=== PATIENT | male | born 1955 | race Caucasian/White ===

== ENCOUNTER 2020-11-25 12:35 | Inpatient (IN) ==
[2020-11-25 13:16] LABS: Hematocrit 33.7 % (37.5-50.1); Hemoglobin 11.1 g/dL (12.9-16.9); Mean Corpuscular HGB Conc 32.9 g/dL (31.6-35.5); Mean Corpuscular Hemoglobin 30.5 pg (28.0-33.3); Mean Corpuscular Volume 92.6 fL (83.0-100.0); Mean Platelet Volume 10.1 fL (9.4-12.4); Platelet Count 247 K/mcL (140-400); Red Blood Count 3.64 M/mcL (4.19-5.50); Red Cell Distribution Width 12.7 % (11.5-14.5); White Blood Count 17.4 K/mcL (4.3-11.1)
[2020-11-25 13:22] LABS: INR 1.2; Prothrombin Time 13.6 Seconds (9.4-12.1)
[2020-11-25 13:33] LABS: Alanine Aminotransferase 40 Units/L (7-52); Albumin 3.6 g/dL (3.5-5.7); Albumin/Globulin Ratio 1.3 (1.1-2.2); Alkaline Phosphatase 88 Units/L (34-104); Aspartate Amino Transferase 49 Units/L (13-39); BUN/Creatinine Ratio 25 (6-26); Bilirubin,Total 0.3 mg/dL (0.3-1.0); Blood Urea Nitrogen 37 mg/dL (8-23); Calcium 8.6 mg/dL (8.6-10.3); Carbon Dioxide 26 mEq/L (23-29); Chloride 105 mEq/L (98-107); Globulin 2.8 g/dL (2.4-3.5); Glucose 353 mg/dL (70-105); Osmolality,Calculated 307 (280-300); Potassium 5.4 mEq/L (3.5-5.1); Sodium 137 mEq/L (136-145); Total Protein 6.4 g/dL (6.4-8.9); eGFR For African Americans 58 (> 60); eGFR For Non-African Americans 48 (> 60)
[2020-11-25 13:34] LABS: Lymphocytes # 0.4 K/mcL (0.6-4.6); Monocytes # 0.7 K/mcL (0.0-1.3); Neutrophils # 16.4 K/mcL (1.6-8.9); Platelet Estimate Normal (Normal)
[2020-11-25 13:35] LABS: Toxic Granulation Present (Not Present)
[2020-11-25] MEDS ORDERED: Isovue-370 500 ML BOTTLE IVP ONE (14:04)
[2020-11-25] MEDS ORDERED: MetroNIDAZOLE 500 MG/100 ML 500 MG/100 ML BAG IVPB ONE (14:56)
[2020-11-25] MEDS ORDERED: Naloxone 0.4 MG/ML INJ IVP PRN (16:47)
[2020-11-25] MEDS ORDERED: D5% in Water 1,000 ML IVC PRN (17:07)
[2020-11-25] MEDS ORDERED: *HR* Dextrose 50 % in Water (Vial) 50 ML VIAL IVP PRN (17:07)
[2020-11-25] MEDS ORDERED: Dextrose Gel 15 GM/37.5 ML TUBE PO PRN ×2 (17:07)
[2020-11-25] MEDS: 0.9 % Sodium Chloride 1,000 ML IVC SCH (18:07)
[2020-11-25 18:13] LABS: Ferritin 195 ng/mL (20-250); Iron < 10 mcg/dL (65-175); Transferrin 212 mg/dL (203-362)
[2020-11-25] MEDS: Insulin LISPRO 300 UNITS/3 ML VIAL SUBQ SCH (18:49)
[2020-11-25 20:02] LABS: Influenza A PCR Negative (Negative); Influenza B PCR Negative (Negative); Resp. Syncytial Virus PCR Negative (Negative)
[2020-11-25 20:17] LABS: SARS-CoV-2 by PCR (In House) Negative (Negative)
[2020-11-25] MEDS: Pregabalin 75 MG CAPSULE PO SCH (20:51)
[2020-11-25] MEDS: OXcarbazepine 150 MG TABLET PO SCH (20:51)
[2020-11-25] MEDS: QUEtiapine Fumarate 100 MG TABLET PO SCH (20:51)
[2020-11-25] MEDS: TACROLIMUS TP SCH (20:52)
[2020-11-25] MEDS: Clobetasol Propionate 0.05% 15 GM Cream Tube TP SCH (20:52)
[2020-11-25] MEDS: Melatonin 3 MG TABLET PO SCH (20:52)
[2020-11-25] MEDS: Latanoprost 2.5 ML BOTTLE BOTH EYES SCH (20:53)
[2020-11-25] MEDS: Baclofen 10 MG TABLET PO SCH (20:58)
[2020-11-26] MEDS: Insulin LISPRO 300 UNITS/3 ML VIAL SUBQ SCH ×5 (00:08→23:59)
[2020-11-26] MEDS: MetroNIDAZOLE 500 MG/100 ML 500 MG/100 ML BAG IVPB SCH ×3 (00:13→17:04)
[2020-11-26] MEDS: 0.9 % Sodium Chloride 1,000 ML IVC SCH ×3 (05:41→14:37)
[2020-11-26 05:51] LABS: Hematocrit 32.8 % (37.5-50.1); Hemoglobin 10.5 g/dL (12.9-16.9); Mean Corpuscular Hemoglobin 30.6 pg (28.0-33.3); Mean Corpuscular Volume 95.6 fL (83.0-100.0); Mean Platelet Volume 10.6 fL (9.4-12.4); Platelet Count 236 K/mcL (140-400); Red Blood Count 3.43 M/mcL (4.19-5.50); Red Cell Distribution Width 12.9 % (11.5-14.5)
[2020-11-26 06:04] LABS: Albumin 3.2 g/dL (3.5-5.7); Albumin/Globulin Ratio 1.2 (1.1-2.2); BUN/Creatinine Ratio 29 (6-26); Bilirubin,Direct 0.1 mg/dL (0.0-0.2); Bilirubin,Indirect 0.2 mg/dL (0.0-1.0); Bilirubin,Total 0.3 mg/dL (0.3-1.0); Blood Urea Nitrogen 33 mg/dL (8-23); Calcium 8.4 mg/dL (8.6-10.3); Carbon Dioxide 26 mEq/L (23-29); Chloride 105 mEq/L (98-107); Globulin 2.7 g/dL (2.4-3.5); Glucose 148 mg/dL (70-105); Magnesium 2.2 mg/dL (1.6-2.6); Osmolality,Calculated 296 (280-300); Potassium 4.8 mEq/L (3.5-5.1); Sodium 138 mEq/L (136-145); Total Protein 5.9 g/dL (6.4-8.9); eGFR For African Americans > 60 (> 60); eGFR For Non-African Americans > 60 (> 60)
[2020-11-26 06:17] LABS: Eosinophils # 0.3 K/mcL (0.0-0.6); Lymphocytes # 0.6 K/mcL (0.6-4.6); Monocytes # 0.6 K/mcL (0.0-1.3); Platelet Estimate Normal (Normal); Toxic Granulation Present (Not Present)
[2020-11-26] MEDS: Cholecalciferol (D-3) 1,000 UNIT (25MCG) TABLET PO SCH (07:47)
[2020-11-26] MEDS: Pregabalin 75 MG CAPSULE PO SCH ×2 (07:47→21:00)
[2020-11-26] MEDS: QUEtiapine Fumarate 100 MG TABLET PO SCH ×2 (07:48→21:02)
[2020-11-26] MEDS: OXcarbazepine 150 MG TABLET PO SCH ×2 (07:48→21:02)
[2020-11-26] MEDS: Baclofen 10 MG TABLET PO SCH ×3 (07:48→21:01)
[2020-11-26] MEDS: Psyllium 1 PACKET POWD.PACK PO SCH (07:49)
[2020-11-26] MEDS: TACROLIMUS TP SCH ×2 (07:49→21:05)
[2020-11-26] MEDS: Clobetasol Propionate 0.05% 15 GM Cream Tube TP SCH ×2 (07:56→21:04)
[2020-11-26] MEDS ORDERED: Pantoprazole 40 MG VIAL IVP SCH (09:00)
[2020-11-26] MEDS ORDERED: *HR* Propofol 200 MG/20 ML VIAL IVP ONE (09:42)
[2020-11-26] MEDS ORDERED: Lidocaine -MPF 2% 5 ML VIAL ONE (09:42)
[2020-11-26] MEDS ORDERED: *HR* FentaNYL (PF) 100 MCG/2 ML VIAL ONE (11:21)
[2020-11-26] MEDS: Pantoprazole 40 MG VIAL IVP SCH (17:04)
[2020-11-26] MEDS: Melatonin 3 MG TABLET PO SCH (21:01)
[2020-11-26] MEDS: Latanoprost 2.5 ML BOTTLE BOTH EYES SCH (21:04)
[2020-11-27] MEDS: 0.9 % Sodium Chloride 1,000 ML IVC SCH ×2 (00:10→13:35)
[2020-11-27] MEDS: MetroNIDAZOLE 500 MG/100 ML 500 MG/100 ML BAG IVPB SCH ×3 (00:10→16:31)
[2020-11-27] MEDS: Pantoprazole 40 MG VIAL IVP SCH ×2 (05:31→16:31)
[2020-11-27] MEDS: Insulin LISPRO 300 UNITS/3 ML VIAL SUBQ SCH ×4 (05:32→22:04)
[2020-11-27 06:51] LABS: Hematocrit 31.6 % (37.5-50.1); Hemoglobin 10.2 g/dL (12.9-16.9); Mean Corpuscular HGB Conc 32.3 g/dL (31.6-35.5); Mean Corpuscular Hemoglobin 30.4 pg (28.0-33.3); Mean Corpuscular Volume 94.3 fL (83.0-100.0); Mean Platelet Volume 10.1 fL (9.4-12.4); Platelet Count 216 K/mcL (140-400); Red Blood Count 3.35 M/mcL (4.19-5.50); Red Cell Distribution Width 12.7 % (11.5-14.5)
[2020-11-27 07:08] LABS: BUN/Creatinine Ratio 22 (6-26); Blood Urea Nitrogen 18 mg/dL (8-23); Calcium 8.1 mg/dL (8.6-10.3); Carbon Dioxide 24 mEq/L (23-29); Chloride 104 mEq/L (98-107); Glucose 119 mg/dL (70-105); Osmolality,Calculated 281 (280-300); Potassium 4.6 mEq/L (3.5-5.1); Sodium 134 mEq/L (136-145); eGFR For African Americans > 60 (> 60); eGFR For Non-African Americans > 60 (> 60)
[2020-11-27 07:26] LABS: Eosinophils # 0.3 K/mcL (0.0-0.6); Lymphocytes # 1.7 K/mcL (0.6-4.6); Monocytes # 0.3 K/mcL (0.0-1.3); Neutrophils # 11.8 K/mcL (1.6-8.9)
[2020-11-27 07:27] LABS: Platelet Estimate Normal (Normal)
[2020-11-27] MEDS: Pregabalin 75 MG CAPSULE PO SCH ×2 (08:15→20:15)
[2020-11-27] MEDS: QUEtiapine Fumarate 100 MG TABLET PO SCH ×2 (08:15→20:16)
[2020-11-27] MEDS: Clobetasol Propionate 0.05% 15 GM Cream Tube TP SCH ×2 (08:16→20:17)
[2020-11-27] MEDS: Baclofen 10 MG TABLET PO SCH ×3 (08:16→20:16)
[2020-11-27] MEDS: Cholecalciferol (D-3) 1,000 UNIT (25MCG) TABLET PO SCH (08:16)
[2020-11-27] MEDS: OXcarbazepine 150 MG TABLET PO SCH ×2 (08:16→20:16)
[2020-11-27] MEDS: Psyllium 1 PACKET POWD.PACK PO SCH (08:17)
[2020-11-27] MEDS: TACROLIMUS TP SCH ×2 (08:18→22:05)
[2020-11-27] MEDS ORDERED: Isovue-370 500 ML BOTTLE IVP ONE (08:28)
[2020-11-27] MEDS: Ketorolac 30 MG/ML VIAL IVP PRN (13:34)
[2020-11-27] MEDS: Melatonin 3 MG TABLET PO SCH (20:16)
[2020-11-27] MEDS: Latanoprost 2.5 ML BOTTLE BOTH EYES SCH (20:18)
[2020-11-28] MEDS: 0.9 % Sodium Chloride 1,000 ML IVC SCH ×2 (00:20→11:26)
[2020-11-28] MEDS: MetroNIDAZOLE 500 MG/100 ML 500 MG/100 ML BAG IVPB SCH ×2 (00:24→08:41)
[2020-11-28 03:28] LABS: Hematocrit 28.4 % (37.5-50.1); Hemoglobin 9.1 g/dL (12.9-16.9); Mean Corpuscular Hemoglobin 29.8 pg (28.0-33.3); Mean Corpuscular Volume 93.1 fL (83.0-100.0); Mean Platelet Volume 10.4 fL (9.4-12.4); Monocytes # 0.4 K/mcL (0.0-1.3); Platelet Count 198 K/mcL (140-400); Red Blood Count 3.05 M/mcL (4.19-5.50); Red Cell Distribution Width 12.4 % (11.5-14.5); White Blood Count 9.3 K/mcL (4.3-11.1)
[2020-11-28 03:47] LABS: BUN/Creatinine Ratio 19 (6-26); Blood Urea Nitrogen 14 mg/dL (8-23); Calcium 7.8 mg/dL (8.6-10.3); Carbon Dioxide 24 mEq/L (23-29); Chloride 103 mEq/L (98-107); Glucose 200 mg/dL (70-105); Osmolality,Calculated 282 (280-300); Potassium 4.3 mEq/L (3.5-5.1); Sodium 133 mEq/L (136-145); eGFR For African Americans > 60 (> 60); eGFR For Non-African Americans > 60 (> 60)
[2020-11-28 04:22] LABS: Eosinophils # 0.7 K/mcL (0.0-0.6); Lymphocytes # 0.6 K/mcL (0.6-4.6); Neutrophils # 7.6 K/mcL (1.6-8.9); Platelet Estimate Normal (Normal)
[2020-11-28] MEDS: Pantoprazole 40 MG VIAL IVP SCH ×2 (05:55→16:43)
[2020-11-28] MEDS: Insulin LISPRO 300 UNITS/3 ML VIAL SUBQ SCH ×4 (09:00→20:06)
[2020-11-28] MEDS: Baclofen 10 MG TABLET PO SCH ×3 (09:01→20:04)
[2020-11-28] MEDS: QUEtiapine Fumarate 100 MG TABLET PO SCH ×2 (09:01→20:05)
[2020-11-28] MEDS: Pregabalin 75 MG CAPSULE PO SCH ×2 (09:01→20:05)
[2020-11-28] MEDS: Cholecalciferol (D-3) 1,000 UNIT (25MCG) TABLET PO SCH (09:01)
[2020-11-28] MEDS: Clobetasol Propionate 0.05% 15 GM Cream Tube TP SCH ×2 (09:02→20:06)
[2020-11-28] MEDS: Psyllium 1 PACKET POWD.PACK PO SCH (09:02)
[2020-11-28] MEDS: OXcarbazepine 150 MG TABLET PO SCH ×2 (09:02→20:04)
[2020-11-28] MEDS: TACROLIMUS TP SCH ×2 (09:02→20:06)
[2020-11-28] MEDS: Lactulose Oral Soln 20 GM/30 ML UDC PO PRN (16:42)
[2020-11-28] MEDS: metroNIDAZOLE 500 MG TABLET PO SCH ×2 (16:42→20:05)
[2020-11-28] MEDS: Latanoprost 2.5 ML BOTTLE BOTH EYES SCH (20:03)
[2020-11-28] MEDS: Melatonin 3 MG TABLET PO SCH (20:05)
[2020-11-28] MEDS: Ketorolac 30 MG/ML VIAL IVP PRN (22:13)
[2020-11-29] MEDS: Pantoprazole 40 MG VIAL IVP SCH ×2 (04:53→17:00)
[2020-11-29] MEDS: Insulin LISPRO 300 UNITS/3 ML VIAL SUBQ SCH ×4 (07:48→20:09)
[2020-11-29] MEDS: Psyllium 1 PACKET POWD.PACK PO SCH (07:56)
[2020-11-29] MEDS: OXcarbazepine 150 MG TABLET PO SCH ×2 (07:56→20:06)
[2020-11-29] MEDS: metroNIDAZOLE 500 MG TABLET PO SCH ×3 (07:57→20:05)
[2020-11-29] MEDS: QUEtiapine Fumarate 100 MG TABLET PO SCH ×2 (07:57→20:06)
[2020-11-29] MEDS: Pregabalin 75 MG CAPSULE PO SCH ×2 (07:57→20:04)
[2020-11-29] MEDS: Baclofen 10 MG TABLET PO SCH ×3 (07:57→20:04)
[2020-11-29] MEDS: Cholecalciferol (D-3) 1,000 UNIT (25MCG) TABLET PO SCH (07:57)
[2020-11-29] MEDS: TACROLIMUS TP SCH ×2 (07:57→20:09)
[2020-11-29] MEDS: Clobetasol Propionate 0.05% 15 GM Cream Tube TP SCH ×2 (07:58→20:11)
[2020-11-29] MEDS: Iron Sucrose Complex 250 MG in 0.9 % Sodium Chloride 250 ML IVPB SCH (07:58)
[2020-11-29 08:13] LABS: Basophils % 0.3 %; Eosinophils # 0.6 K/mcL (0.0-0.6); Hematocrit 30.2 % (37.5-50.1); Hemoglobin 10.1 g/dL (12.9-16.9); Immature Granulocytes % 0.6 % (0-4); Lymphocytes # 0.9 K/mcL (0.6-4.6); Lymphocytes % 9.8 %; Mean Corpuscular HGB Conc 33.4 g/dL (31.6-35.5); Mean Corpuscular Hemoglobin 31.2 pg (28.0-33.3); Mean Corpuscular Volume 93.2 fL (83.0-100.0); Monocytes # 0.5 K/mcL (0.0-1.3); Monocytes % 5.3 %; Neutrophils # 7.4 K/mcL (1.6-8.9); Platelet Count 229 K/mcL (140-400); Red Blood Count 3.24 M/mcL (4.19-5.50); Red Cell Distribution Width 12.5 % (11.5-14.5); White Blood Count 9.5 K/mcL (4.3-11.1)
[2020-11-29 08:38] LABS: BUN/Creatinine Ratio 13 (6-26); Blood Urea Nitrogen 10 mg/dL (8-23); Calcium 8.3 mg/dL (8.6-10.3); Carbon Dioxide 25 mEq/L (23-29); Chloride 105 mEq/L (98-107); Glucose 145 mg/dL (70-105); Osmolality,Calculated 286 (280-300); Potassium 4.2 mEq/L (3.5-5.1); Sodium 137 mEq/L (136-145); eGFR For African Americans > 60 (> 60); eGFR For Non-African Americans > 60 (> 60)
[2020-11-29 13:17] LABS: Alanine Aminotransferase 54 Units/L (7-52); Albumin 2.9 g/dL (3.5-5.7); Albumin/Globulin Ratio 1.1 (1.1-2.2); Alkaline Phosphatase 76 Units/L (34-104); Aspartate Amino Transferase 23 Units/L (13-39); Bilirubin,Direct 0.1 mg/dL (0.0-0.2); Bilirubin,Indirect 0.1 mg/dL (0.0-1.0); Bilirubin,Total 0.2 mg/dL (0.3-1.0); Globulin 2.7 g/dL (2.4-3.5); Total Protein 5.6 g/dL (6.4-8.9)
[2020-11-29] MEDS: Sucralfate 1 GM TABLET PO SCH (15:45)
[2020-11-29] MEDS: *HR* Heparin 5,000 UNIT/ML VIAL SQ SCH (17:00)
[2020-11-29] MEDS: Melatonin 3 MG TABLET PO SCH (20:04)
[2020-11-29] MEDS: Lactobacillus 1 EACH CAP.SPRINK PO SCH (20:04)
[2020-11-29] MEDS: Latanoprost 2.5 ML BOTTLE BOTH EYES SCH (20:11)
[2020-11-30 01:28] LABS: Basophils % 0.3 %; Eosinophils # 0.5 K/mcL (0.0-0.6); Hematocrit 28.9 % (37.5-50.1); Hemoglobin 9.8 g/dL (12.9-16.9); Lymphocytes # 1.2 K/mcL (0.6-4.6); Lymphocytes % 12.7 %; Mean Corpuscular HGB Conc 33.9 g/dL (31.6-35.5); Mean Corpuscular Hemoglobin 31.2 pg (28.0-33.3); Monocytes # 0.7 K/mcL (0.0-1.3); Monocytes % 7.2 %; Neutrophils # 6.7 K/mcL (1.6-8.9); Platelet Count 253 K/mcL (140-400); Red Blood Count 3.14 M/mcL (4.19-5.50); Red Cell Distribution Width 12.6 % (11.5-14.5); Segmented Neutrophils % 73.8 %
[2020-11-30 01:44] LABS: BUN/Creatinine Ratio 11 (6-26); Blood Urea Nitrogen 9 mg/dL (8-23); Calcium 8.3 mg/dL (8.6-10.3); Carbon Dioxide 24 mEq/L (23-29); Chloride 102 mEq/L (98-107); Glucose 190 mg/dL (70-105); Osmolality,Calculated 282 (280-300); Potassium 4.4 mEq/L (3.5-5.1); Sodium 134 mEq/L (136-145); eGFR For African Americans > 60 (> 60); eGFR For Non-African Americans > 60 (> 60)
[2020-11-30] MEDS: Pantoprazole 40 MG VIAL IVP SCH ×2 (05:44→18:03)
[2020-11-30] MEDS: Ketorolac 30 MG/ML VIAL IVP PRN ×2 (05:44→21:11)
[2020-11-30] MEDS: *HR* Heparin 5,000 UNIT/ML VIAL SQ SCH ×2 (05:44→18:04)
[2020-11-30] MEDS: OXcarbazepine 150 MG TABLET PO SCH ×2 (08:18→21:12)
[2020-11-30] MEDS: Aspirin Enteric Coated 81 MG Tablet PO SCH (08:18)
[2020-11-30] MEDS: Psyllium 1 PACKET POWD.PACK PO SCH (08:19)
[2020-11-30] MEDS: QUEtiapine Fumarate 100 MG TABLET PO SCH ×2 (08:19→21:12)
[2020-11-30] MEDS: lisinopriL 10 MG TABLET PO SCH (08:19)
[2020-11-30] MEDS: Lactobacillus 1 EACH CAP.SPRINK PO SCH ×2 (08:19→21:12)
[2020-11-30] MEDS: Cholecalciferol (D-3) 1,000 UNIT (25MCG) TABLET PO SCH (08:19)
[2020-11-30] MEDS: Pregabalin 75 MG CAPSULE PO SCH ×2 (08:19→21:12)
[2020-11-30] MEDS: Sucralfate 1 GM TABLET PO SCH ×2 (08:19→16:41)
[2020-11-30] MEDS: metroNIDAZOLE 500 MG TABLET PO SCH ×3 (08:19→21:13)
[2020-11-30] MEDS: Baclofen 10 MG TABLET PO SCH ×3 (08:19→21:11)
[2020-11-30] MEDS: Ondansetron ODT 4 MG TAB.RAPDIS PO PRN ×2 (08:22→21:10)
[2020-11-30] MEDS: Insulin LISPRO 300 UNITS/3 ML VIAL SUBQ SCH ×4 (08:23→21:13)
[2020-11-30] MEDS: TACROLIMUS TP SCH ×2 (08:29→21:13)
[2020-11-30] MEDS: Clobetasol Propionate 0.05% 15 GM Cream Tube TP SCH ×2 (08:35→21:13)
[2020-11-30] MEDS: Iron Sucrose Complex 250 MG in 0.9 % Sodium Chloride 250 ML IVPB SCH (08:35)
[2020-11-30] MEDS ORDERED: Simethicone 80 MG TAB.CHEW PO PRN (09:29)
[2020-11-30] MEDS: Melatonin 3 MG TABLET PO SCH (21:11)
[2020-11-30] MEDS: Latanoprost 2.5 ML BOTTLE BOTH EYES SCH (21:13)
[2020-11-30] MEDS: Prochlorperazine 10 MG/2 ML VIAL IVP PRN (23:05)
[2020-12-01] MEDS ORDERED: Ibuprofen 600 MG TABLET PO ONE (03:14)
[2020-12-01] MEDS: Pantoprazole 40 MG VIAL IVP SCH ×2 (04:47→18:16)
[2020-12-01] MEDS: *HR* Heparin 5,000 UNIT/ML VIAL SQ SCH ×2 (04:47→18:16)
[2020-12-01 05:19] LABS: Hematocrit 28.1 % (37.5-50.1); Hemoglobin 9.4 g/dL (12.9-16.9); Lymphocytes # 0.5 K/mcL (0.6-4.6); Mean Corpuscular HGB Conc 33.5 g/dL (31.6-35.5); Mean Corpuscular Hemoglobin 30.7 pg (28.0-33.3); Mean Corpuscular Volume 91.8 fL (83.0-100.0); Mean Platelet Volume 9.9 fL (9.4-12.4); Platelet Count 256 K/mcL (140-400); Red Blood Count 3.06 M/mcL (4.19-5.50); Red Cell Distribution Width 12.5 % (11.5-14.5); White Blood Count 11.3 K/mcL (4.3-11.1)
[2020-12-01 05:31] LABS: BUN/Creatinine Ratio 12 (6-26); Blood Urea Nitrogen 11 mg/dL (8-23); Calcium 8.2 mg/dL (8.6-10.3); Carbon Dioxide 25 mEq/L (23-29); Chloride 100 mEq/L (98-107); Glucose 202 mg/dL (70-105); Osmolality,Calculated 281 (280-300); Potassium 4.3 mEq/L (3.5-5.1); Sodium 133 mEq/L (136-145); eGFR For African Americans > 60 (> 60); eGFR For Non-African Americans > 60 (> 60)
[2020-12-01 06:10] LABS: Anisocytosis 1+ (Not Present); Monocytes # 0.7 K/mcL (0.0-1.3); Neutrophils # 9.9 K/mcL (1.6-8.9); Platelet Estimate Normal (Normal)
[2020-12-01] MEDS ORDERED: Isovue-370 500 ML BOTTLE IVP ONE (09:28)
[2020-12-01] MEDS: Insulin LISPRO 300 UNITS/3 ML VIAL SUBQ SCH ×4 (09:49→21:23)
[2020-12-01] MEDS: Psyllium 1 PACKET POWD.PACK PO SCH (09:50)
[2020-12-01] MEDS: Cholecalciferol (D-3) 1,000 UNIT (25MCG) TABLET PO SCH (09:50)
[2020-12-01] MEDS: Baclofen 10 MG TABLET PO SCH ×3 (09:50→21:23)
[2020-12-01] MEDS: lisinopriL 10 MG TABLET PO SCH (09:51)
[2020-12-01] MEDS: TACROLIMUS TP SCH (09:52)
[2020-12-01] MEDS: Aspirin Enteric Coated 81 MG Tablet PO SCH (09:52)
[2020-12-01] MEDS: Pregabalin 75 MG CAPSULE PO SCH ×2 (09:52→21:22)
[2020-12-01] MEDS: Sucralfate 1 GM TABLET PO SCH ×2 (09:52→16:36)
[2020-12-01] MEDS: Lactobacillus 1 EACH CAP.SPRINK PO SCH ×2 (09:52→21:23)
[2020-12-01] MEDS: QUEtiapine Fumarate 100 MG TABLET PO SCH ×2 (09:52→21:21)
[2020-12-01] MEDS: OXcarbazepine 150 MG TABLET PO SCH ×2 (09:53→21:23)
[2020-12-01] MEDS: Clobetasol Propionate 0.05% 15 GM Cream Tube TP SCH ×2 (09:53→21:24)
[2020-12-01] MEDS: Iron Sucrose Complex 250 MG in 0.9 % Sodium Chloride 250 ML IVPB SCH (10:07)
[2020-12-01] MEDS ORDERED: Isovue-370 500 ML BOTTLE PO ONE (12:12)
[2020-12-01] MEDS: MetroNIDAZOLE 500 MG/100 ML 500 MG/100 ML BAG IVPB SCH ×2 (15:16→16:36)
[2020-12-01] MEDS: Prochlorperazine 10 MG/2 ML VIAL IVP PRN (19:46)
[2020-12-01] MEDS: Melatonin 3 MG TABLET PO SCH (21:22)
[2020-12-01] MEDS: Latanoprost 2.5 ML BOTTLE BOTH EYES SCH (21:24)
[2020-12-01] MEDS ORDERED: Ibuprofen 800 MG TABLET PO ONE (22:23)
[2020-12-02] MEDS: MetroNIDAZOLE 500 MG/100 ML 500 MG/100 ML BAG IVPB SCH ×2 (00:31→08:20)
[2020-12-02 02:51] LABS: Hematocrit 28.1 % (37.5-50.1); Hemoglobin 9.4 g/dL (12.9-16.9); Mean Corpuscular HGB Conc 33.5 g/dL (31.6-35.5); Mean Corpuscular Hemoglobin 30.6 pg (28.0-33.3); Mean Corpuscular Volume 91.5 fL (83.0-100.0); Platelet Count 268 K/mcL (140-400); Red Blood Count 3.07 M/mcL (4.19-5.50); White Blood Count 9.4 K/mcL (4.3-11.1)
[2020-12-02 03:08] LABS: BUN/Creatinine Ratio 13 (6-26); Blood Urea Nitrogen 11 mg/dL (8-23); Calcium 7.8 mg/dL (8.6-10.3); Carbon Dioxide 22 mEq/L (23-29); Chloride 98 mEq/L (98-107); Glucose 223 mg/dL (70-105); Osmolality,Calculated 276 (280-300); Potassium 3.7 mEq/L (3.5-5.1); Sodium 130 mEq/L (136-145); eGFR For African Americans > 60 (> 60); eGFR For Non-African Americans > 60 (> 60)
[2020-12-02 03:50] LABS: Anisocytosis 1+ (Not Present); Lymphocytes # 0.3 K/mcL (0.6-4.6); Neutrophils # 7.9 K/mcL (1.6-8.9); Platelet Estimate Normal (Normal); Smudge Cells Present (Not Present)
[2020-12-02 05:58] LABS: Enterococcus by PCR Not Detected (Not Detect); Staphylococcus aureus by PCR DETECTED (Not Detect); Staphylococcus by PCR Not Detected (Not Detect); mecA Methicillin-Resist Gene Not Detected (Not Detect)
[2020-12-02 05:59] LABS: Acinetobacter baumannii by PCR Not Detected (Not Detect); Candida albicans by PCR Not Detected (Not Detect); Candida glabrata by PCR Not Detected (Not Detect); Candida krusei by PCR Not Detected (Not Detect); Candida parapsilosis by PCR Not Detected (Not Detect); Candida tropicalis by PCR Not Detected (Not Detect); Enterobacter cloacae Cmplx PCR Not Detected (Not Detect); Enterobacteriaceae by PCR Not Detected (Not Detect); Escherichia coli by PCR Not Detected (Not Detect); Klebsiella oxytoca by PCR Not Detected (Not Detect); Klebsiella pneumoniae by PCR Not Detected (Not Detect); Proteus by PCR Not Detected (Not Detect); Pseudomonas aeruginosa by PCR Not Detected (Not Detect); Serratia marcescens by PCR Not Detected (Not Detect); Streptococcus agalactiae(B)PCR Not Detected (Not Detect); Streptococcus by PCR Not Detected (Not Detect); Streptococcus pneumoniae PCR Not Detected (Not Detect); Streptococcus pyogenes (A) PCR Not Detected (Not Detect)
[2020-12-02] MEDS: *HR* Heparin 5,000 UNIT/ML VIAL SQ SCH ×2 (06:17→19:22)
[2020-12-02] MEDS: Pantoprazole 40 MG VIAL IVP SCH ×2 (06:17→19:22)
[2020-12-02] MEDS: 0.9 % Sodium Chloride 1,000 ML IVC SCH ×2 (08:19→20:01)
[2020-12-02] MEDS: Lactobacillus 1 EACH CAP.SPRINK PO SCH ×2 (08:21→19:52)
[2020-12-02] MEDS: Psyllium 1 PACKET POWD.PACK PO SCH (08:21)
[2020-12-02] MEDS: Aspirin Enteric Coated 81 MG Tablet PO SCH (08:21)
[2020-12-02] MEDS: Sucralfate 1 GM TABLET PO SCH ×2 (08:22→19:21)
[2020-12-02] MEDS: QUEtiapine Fumarate 100 MG TABLET PO SCH ×2 (08:22→19:52)
[2020-12-02] MEDS: Baclofen 10 MG TABLET PO SCH ×2 (08:22→15:17)
[2020-12-02] MEDS: Pregabalin 75 MG CAPSULE PO SCH (08:22)
[2020-12-02] MEDS: OXcarbazepine 150 MG TABLET PO SCH ×2 (08:22→19:52)
[2020-12-02] MEDS: Cholecalciferol (D-3) 1,000 UNIT (25MCG) TABLET PO SCH (08:22)
[2020-12-02] MEDS: Insulin LISPRO 300 UNITS/3 ML VIAL SUBQ SCH ×4 (08:23→21:16)
[2020-12-02] MEDS: Clobetasol Propionate 0.05% 15 GM Cream Tube TP SCH ×2 (08:34→20:12)
[2020-12-02] MEDS ORDERED: Vancomycin 1,500 MG/265 ML IV.SOLN IVPB ONE (09:00)
[2020-12-02] MEDS ORDERED: lisinopriL 5 MG TABLET PO SCH (09:00)
[2020-12-02] MEDS ORDERED: Isovue-370 500 ML BOTTLE IVP ONE (11:56)
[2020-12-02] MEDS: Piperacillin/Tazobactam 3.375 GM in 0.9 % Sodium Chloride Mini Bag 100 ML IVPB SCH (15:17)
[2020-12-02] MEDS ORDERED: Perflutren Lipid Microsphere 1.3 ML in 0.9 % Sodium Chloride 8.7 ML IVP PRN (15:39)
[2020-12-02] MEDS: Melatonin 3 MG TABLET PO SCH (19:53)
[2020-12-02] MEDS: Ondansetron ODT 4 MG TAB.RAPDIS PO PRN (19:53)
[2020-12-02] MEDS: Latanoprost 2.5 ML BOTTLE BOTH EYES SCH (20:12)
[2020-12-02] MEDS: Insulin DETEMIR 100 UNIT/ML X5UNITS SUBQ SCH (21:16)
[2020-12-03] MEDS: Piperacillin/Tazobactam 3.375 GM in 0.9 % Sodium Chloride Mini Bag 100 ML IVPB SCH ×3 (00:18→15:07)
[2020-12-03] MEDS: *HR* Heparin 5,000 UNIT/ML VIAL SQ SCH ×2 (05:03→18:04)
[2020-12-03] MEDS: 0.9 % Sodium Chloride 1,000 ML IVC SCH ×2 (05:20→18:22)
[2020-12-03] MEDS: Pantoprazole 40 MG VIAL IVP SCH (05:20)
[2020-12-03] MEDS: Sucralfate 1 GM TABLET PO SCH ×2 (07:52→18:03)
[2020-12-03] MEDS: Insulin LISPRO 300 UNITS/3 ML VIAL SUBQ SCH ×4 (07:52→22:09)
[2020-12-03] MEDS ORDERED: *HR* FentaNYL (PF) 100 MCG/2 ML VIAL ONE (08:35)
[2020-12-03] MEDS ORDERED: *HR* Propofol 200 MG/20 ML VIAL IVP ONE (08:41)
[2020-12-03] MEDS ORDERED: Lidocaine -MPF 2% 5 ML VIAL ONE (08:41)
[2020-12-03] MEDS ORDERED: Ondansetron 4 MG/2 ML VIAL ONE (08:43)
[2020-12-03] MEDS: Clobetasol Propionate 0.05% 15 GM Cream Tube TP SCH ×2 (09:21→22:18)
[2020-12-03] MEDS: Psyllium 1 PACKET POWD.PACK PO SCH (09:22)
[2020-12-03] MEDS: QUEtiapine Fumarate 100 MG TABLET PO SCH ×2 (09:22→22:07)
[2020-12-03] MEDS: OXcarbazepine 150 MG TABLET PO SCH ×2 (09:22→22:07)
[2020-12-03] MEDS: Cholecalciferol (D-3) 1,000 UNIT (25MCG) TABLET PO SCH (09:22)
[2020-12-03] MEDS: Lactobacillus 1 EACH CAP.SPRINK PO SCH ×2 (09:22→22:07)
[2020-12-03] MEDS: Aspirin Enteric Coated 81 MG Tablet PO SCH (09:22)
[2020-12-03 12:23] LABS: Estimated Average Glucose 174 mg/dl; Hemoglobin A1C 7.7 %
[2020-12-03 17:58] LABS: Procalcitonin 0.56 ng/mL (0.00-0.15)
[2020-12-03] MEDS: Lactulose Oral Soln 20 GM/30 ML UDC PO PRN (18:04)
[2020-12-03] MEDS: Ondansetron ODT 4 MG TAB.RAPDIS PO PRN (18:04)
[2020-12-03] MEDS: Melatonin 3 MG TABLET PO SCH (22:07)
[2020-12-03] MEDS: Latanoprost 2.5 ML BOTTLE BOTH EYES SCH (22:07)
[2020-12-03] MEDS: Insulin DETEMIR 100 UNIT/ML X5UNITS SUBQ SCH (22:08)
[2020-12-04] MEDS: Piperacillin/Tazobactam 3.375 GM in 0.9 % Sodium Chloride Mini Bag 100 ML IVPB SCH ×4 (00:18→23:27)
[2020-12-04] MEDS: *HR* Heparin 5,000 UNIT/ML VIAL SQ SCH ×2 (05:13→17:58)
[2020-12-04] MEDS: Ondansetron ODT 4 MG TAB.RAPDIS PO PRN ×2 (06:51→18:01)
[2020-12-04] MEDS: Psyllium 1 PACKET POWD.PACK PO SCH (07:21)
[2020-12-04] MEDS: Lactobacillus 1 EACH CAP.SPRINK PO SCH ×2 (07:22→20:13)
[2020-12-04] MEDS: QUEtiapine Fumarate 100 MG TABLET PO SCH ×2 (07:23→20:13)
[2020-12-04] MEDS: Sucralfate 1 GM TABLET PO SCH ×2 (07:23→15:12)
[2020-12-04] MEDS: Cholecalciferol (D-3) 1,000 UNIT (25MCG) TABLET PO SCH (07:23)
[2020-12-04] MEDS: Aspirin Enteric Coated 81 MG Tablet PO SCH (07:24)
[2020-12-04] MEDS: OXcarbazepine 150 MG TABLET PO SCH ×2 (07:33→20:14)
[2020-12-04 08:14] LABS: Hematocrit 29.9 % (37.5-50.1); Mean Corpuscular HGB Conc 33.4 g/dL (31.6-35.5); Mean Corpuscular Hemoglobin 31.1 pg (28.0-33.3); Mean Corpuscular Volume 92.9 fL (83.0-100.0); Mean Platelet Volume 9.8 fL (9.4-12.4); Platelet Count 300 K/mcL (140-400); Red Blood Count 3.22 M/mcL (4.19-5.50); Red Cell Distribution Width 13.3 % (11.5-14.5); White Blood Count 9.2 K/mcL (4.3-11.1)
[2020-12-04 08:29] LABS: BUN/Creatinine Ratio 14 (6-26); Blood Urea Nitrogen 11 mg/dL (8-23); Calcium 7.8 mg/dL (8.6-10.3); Carbon Dioxide 25 mEq/L (23-29); Chloride 102 mEq/L (98-107); Glucose 149 mg/dL (70-105); Osmolality,Calculated 278 (280-300); Sodium 133 mEq/L (136-145); eGFR For African Americans > 60 (> 60); eGFR For Non-African Americans > 60 (> 60)
[2020-12-04 08:39] LABS: Lymphocytes # 1.1 K/mcL (0.6-4.6); Monocytes # 0.4 K/mcL (0.0-1.3); Neutrophils # 7.7 K/mcL (1.6-8.9)
[2020-12-04 08:40] LABS: Platelet Estimate Normal (Normal)
[2020-12-04] MEDS: Insulin LISPRO 300 UNITS/3 ML VIAL SUBQ SCH ×4 (08:47→21:17)
[2020-12-04 09:47] LABS: % Iron Saturation 15 % (20-55); Iron 33 mcg/dL (65-175); Transferrin 153 mg/dL (203-362)
[2020-12-04 10:12] LABS: Folate 15.3 ng/mL (3.0-16.0)
[2020-12-04] MEDS: Clobetasol Propionate 0.05% 15 GM Cream Tube TP SCH ×2 (11:41→21:17)
[2020-12-04] MEDS ORDERED: Acetaminophen 325 MG TABLET PO PRN (13:27)
[2020-12-04] MEDS ORDERED: Isovue-370 500 ML BOTTLE IVP ONE (13:33)
[2020-12-04 13:34] LABS: Bilirubin,Urine Negative (Negative); Blood,Urine Negative (Negative); Clarity,Urine Clear (Clear); Color,Urine Yellow (Yellow); Glucose,Urine (UA) 300 mg/dL (Normal); Ketones,Urine Negative (Negative); Leukocyte Esterase,Urine Negative (Negative); Mucus,Urine Few per lpf (None-Few); Nitrite,Urine Negative (Negative); PH,Urine 6.5 pH Units (5.0-8.0); Protein,Urine 30 mg/dL (Neg-Trace); RBC,Urine 0-3 per hpf (0-3); Urobilinogen,Urine Normal (Normal); WBC,Urine 0-3 per hpf (0-3)
[2020-12-04] MEDS: Metoclopramide 10 MG/10 ML UD.LIQ PO SCH (17:57)
[2020-12-04] MEDS: Latanoprost 2.5 ML BOTTLE BOTH EYES SCH (20:14)
[2020-12-04] MEDS: Pregabalin 50 MG CAPSULE PO SCH (20:14)
[2020-12-04] MEDS: 0.9 % Sodium Chloride 1,000 ML IVC SCH (20:14)
[2020-12-04] MEDS: Melatonin 3 MG TABLET PO SCH (20:14)
[2020-12-04] MEDS: Insulin DETEMIR 100 UNIT/ML X5UNITS SUBQ SCH (21:16)
[2020-12-04] MEDS: metroNIDAZOLE 500 MG TABLET PO SCH (21:42)
[2020-12-05 01:31] LABS: Basophils % 0.4 %; Eosinophils # 0.3 K/mcL (0.0-0.6); Eosinophils % 3.7 %; Hematocrit 26.6 % (37.5-50.1); Hemoglobin 8.7 g/dL (12.9-16.9); Lymphocytes % 14.7 %; Mean Corpuscular HGB Conc 32.7 g/dL (31.6-35.5); Mean Corpuscular Volume 91.7 fL (83.0-100.0); Mean Platelet Volume 9.8 fL (9.4-12.4); Monocytes # 0.9 K/mcL (0.0-1.3); Monocytes % 13.5 %; Neutrophils # 4.5 K/mcL (1.6-8.9); Platelet Count 283 K/mcL (140-400); Red Cell Distribution Width 13.2 % (11.5-14.5); Segmented Neutrophils % 66.7 %; White Blood Count 6.8 K/mcL (4.3-11.1)
[2020-12-05 01:49] LABS: BUN/Creatinine Ratio 12 (6-26); Blood Urea Nitrogen 7 mg/dL (8-23); Calcium 7.6 mg/dL (8.6-10.3); Carbon Dioxide 24 mEq/L (23-29); Chloride 101 mEq/L (98-107); Glucose 147 mg/dL (70-105); Osmolality,Calculated 275 (280-300); Potassium 3.5 mEq/L (3.5-5.1); Sodium 132 mEq/L (136-145); eGFR For African Americans > 60 (> 60); eGFR For Non-African Americans > 60 (> 60)
[2020-12-05] MEDS: Metoclopramide 10 MG/10 ML UD.LIQ PO SCH ×2 (04:53→16:58)
[2020-12-05] MEDS: *HR* Heparin 5,000 UNIT/ML VIAL SQ SCH ×2 (04:54→16:59)
[2020-12-05] MEDS: 0.9 % Sodium Chloride 1,000 ML IVC SCH (04:54)
[2020-12-05] MEDS: Lactobacillus 1 EACH CAP.SPRINK PO SCH ×2 (09:31→21:15)
[2020-12-05] MEDS: Cholecalciferol (D-3) 1,000 UNIT (25MCG) TABLET PO SCH (09:32)
[2020-12-05] MEDS: Pregabalin 50 MG CAPSULE PO SCH ×2 (09:32→21:16)
[2020-12-05] MEDS: OXcarbazepine 150 MG TABLET PO SCH ×2 (09:32→21:18)
[2020-12-05] MEDS: Sucralfate 1 GM TABLET PO SCH ×2 (09:33→16:01)
[2020-12-05] MEDS: Aspirin Enteric Coated 81 MG Tablet PO SCH (09:33)
[2020-12-05] MEDS: Psyllium 1 PACKET POWD.PACK PO SCH (09:34)
[2020-12-05] MEDS: QUEtiapine Fumarate 100 MG TABLET PO SCH ×2 (09:34→21:17)
[2020-12-05] MEDS: Piperacillin/Tazobactam 3.375 GM in 0.9 % Sodium Chloride Mini Bag 100 ML IVPB SCH ×2 (09:34→16:01)
[2020-12-05] MEDS: Ondansetron ODT 4 MG TAB.RAPDIS PO PRN (09:42)
[2020-12-05] MEDS: Insulin LISPRO 300 UNITS/3 ML VIAL SUBQ SCH ×4 (09:44→20:47)
[2020-12-05] MEDS: Clobetasol Propionate 0.05% 15 GM Cream Tube TP SCH ×2 (09:45→21:23)
[2020-12-05] MEDS: Baclofen 10 MG TABLET PO SCH (16:59)
[2020-12-05] MEDS: Melatonin 3 MG TABLET PO SCH (21:16)
[2020-12-05] MEDS: Insulin DETEMIR 100 UNIT/ML X5UNITS SUBQ SCH (21:20)
[2020-12-05] MEDS: Latanoprost 2.5 ML BOTTLE BOTH EYES SCH (21:23)
[2020-12-05] MEDS ORDERED: Prochlorperazine 10 MG/2 ML VIAL IVP PRN (21:35)
[2020-12-05] MEDS: Prochlorperazine 10 MG/2 ML VIAL IVP PRN (22:04)
[2020-12-06] MEDS: Piperacillin/Tazobactam 3.375 GM in 0.9 % Sodium Chloride Mini Bag 100 ML IVPB SCH ×3 (00:11→16:20)
[2020-12-06 01:48] LABS: Basophils % 0.6 %; Eosinophils # 0.3 K/mcL (0.0-0.6); Eosinophils % 4.4 %; Hematocrit 27.3 % (37.5-50.1); Immature Granulocytes % 1.5 % (0-4); Lymphocytes # 1.4 K/mcL (0.6-4.6); Lymphocytes % 20.5 %; Mean Corpuscular Hemoglobin 30.5 pg (28.0-33.3); Mean Corpuscular Volume 92.5 fL (83.0-100.0); Mean Platelet Volume 9.8 fL (9.4-12.4); Monocytes # 0.8 K/mcL (0.0-1.3); Monocytes % 11.9 %; Platelet Count 352 K/mcL (140-400); Red Blood Count 2.95 M/mcL (4.19-5.50); Red Cell Distribution Width 13.1 % (11.5-14.5); Segmented Neutrophils % 61.1 %; White Blood Count 6.6 K/mcL (4.3-11.1)
[2020-12-06] MEDS: *HR* Heparin 5,000 UNIT/ML VIAL SQ SCH ×2 (02:02→16:20)
[2020-12-06 02:11] LABS: BUN/Creatinine Ratio 10 (6-26); Blood Urea Nitrogen 7 mg/dL (8-23); Calcium 7.9 mg/dL (8.6-10.3); Carbon Dioxide 28 mEq/L (23-29); Chloride 103 mEq/L (98-107); Glucose 159 mg/dL (70-105); Osmolality,Calculated 283 (280-300); Potassium 3.7 mEq/L (3.5-5.1); Sodium 136 mEq/L (136-145); eGFR For African Americans > 60 (> 60); eGFR For Non-African Americans > 60 (> 60)
[2020-12-06 02:22] LABS: Platelet Estimate Normal (Normal)
[2020-12-06] MEDS: Metoclopramide 10 MG/10 ML UD.LIQ PO SCH (05:14)
[2020-12-06] MEDS: Cholecalciferol (D-3) 1,000 UNIT (25MCG) TABLET PO SCH (08:36)
[2020-12-06] MEDS: Aspirin Enteric Coated 81 MG Tablet PO SCH (08:36)
[2020-12-06] MEDS: OXcarbazepine 150 MG TABLET PO SCH ×2 (08:36→21:06)
[2020-12-06] MEDS: Baclofen 10 MG TABLET PO SCH ×3 (08:37→21:06)
[2020-12-06] MEDS: Sucralfate 1 GM TABLET PO SCH ×2 (08:37→16:21)
[2020-12-06] MEDS: Lactobacillus 1 EACH CAP.SPRINK PO SCH ×2 (08:37→21:07)
[2020-12-06] MEDS: Pregabalin 50 MG CAPSULE PO SCH ×2 (08:37→21:07)
[2020-12-06] MEDS: QUEtiapine Fumarate 100 MG TABLET PO SCH ×2 (08:37→21:07)
[2020-12-06] MEDS: Clobetasol Propionate 0.05% 15 GM Cream Tube TP SCH ×2 (08:38→21:08)
[2020-12-06] MEDS: Insulin LISPRO 300 UNITS/3 ML VIAL SUBQ SCH ×4 (08:38→20:43)
[2020-12-06] MEDS: Psyllium 1 PACKET POWD.PACK PO SCH (08:38)
[2020-12-06] MEDS ORDERED: Lidocaine Viscous Oral Soln 15 ML SOLUTION MM PRN (08:58)
[2020-12-06] MEDS ORDERED: 0.9 % Sodium Chloride 500 ML IVC ONE (08:59)
[2020-12-06] MEDS: *HR* FentaNYL (PF) 100 MCG/2 ML VIAL IVP PRN ×2 (09:40→09:45)
[2020-12-06] MEDS: *HR* Midazolam HCl 5 MG/5 ML VIAL IVP PRN ×3 (09:40→09:50)
[2020-12-06] MEDS: Ondansetron ODT 4 MG TAB.RAPDIS PO PRN ×2 (11:09→16:32)
[2020-12-06] MEDS: metroNIDAZOLE 500 MG TABLET PO SCH (21:06)
[2020-12-06] MEDS: Latanoprost 2.5 ML BOTTLE BOTH EYES SCH (21:07)
[2020-12-06] MEDS: Insulin DETEMIR 100 UNIT/ML X5UNITS SUBQ SCH (21:07)
[2020-12-06] MEDS: Melatonin 3 MG TABLET PO SCH (21:07)
[2020-12-07 01:58] LABS: Basophils % 0.4 %; Eosinophils # 0.3 K/mcL (0.0-0.6); Eosinophils % 4.9 %; Hematocrit 26.8 % (37.5-50.1); Hemoglobin 8.9 g/dL (12.9-16.9); Immature Granulocytes % 2.5 % (0-4); Lymphocytes # 1.7 K/mcL (0.6-4.6); Lymphocytes % 24.5 %; Mean Corpuscular HGB Conc 33.2 g/dL (31.6-35.5); Mean Corpuscular Hemoglobin 30.7 pg (28.0-33.3); Mean Corpuscular Volume 92.4 fL (83.0-100.0); Mean Platelet Volume 9.6 fL (9.4-12.4); Monocytes # 0.7 K/mcL (0.0-1.3); Monocytes % 10.6 %; Neutrophils # 3.9 K/mcL (1.6-8.9); Platelet Count 416 K/mcL (140-400); Red Cell Distribution Width 13.2 % (11.5-14.5); Segmented Neutrophils % 57.1 %; White Blood Count 6.9 K/mcL (4.3-11.1)
[2020-12-07 02:16] LABS: BUN/Creatinine Ratio 13 (6-26); Blood Urea Nitrogen 10 mg/dL (8-23); Carbon Dioxide 28 mEq/L (23-29); Chloride 104 mEq/L (98-107); Glucose 142 mg/dL (70-105); Osmolality,Calculated 285 (280-300); Potassium 3.7 mEq/L (3.5-5.1); Sodium 137 mEq/L (136-145); eGFR For African Americans > 60 (> 60); eGFR For Non-African Americans > 60 (> 60)
[2020-12-07 02:22] LABS: Platelet Estimate Normal (Normal)
[2020-12-07] MEDS: *HR* Heparin 5,000 UNIT/ML VIAL SQ SCH ×2 (06:01→18:55)
[2020-12-07] MEDS: OXcarbazepine 150 MG TABLET PO SCH (07:48)
[2020-12-07] MEDS: Aspirin Enteric Coated 81 MG Tablet PO SCH (07:49)
[2020-12-07] MEDS: Cholecalciferol (D-3) 1,000 UNIT (25MCG) TABLET PO SCH (07:49)
[2020-12-07] MEDS: Sucralfate 1 GM TABLET PO SCH ×2 (07:51→16:12)
[2020-12-07] MEDS: Pregabalin 50 MG CAPSULE PO SCH (07:51)
[2020-12-07] MEDS: metroNIDAZOLE 500 MG TABLET PO SCH ×2 (07:51→14:04)
[2020-12-07] MEDS: Baclofen 10 MG TABLET PO SCH ×2 (07:51→14:04)
[2020-12-07] MEDS: Lactobacillus 1 EACH CAP.SPRINK PO SCH (07:51)
[2020-12-07] MEDS: QUEtiapine Fumarate 100 MG TABLET PO SCH (07:51)
[2020-12-07] MEDS: Psyllium 1 PACKET POWD.PACK PO SCH (07:51)
[2020-12-07] MEDS: Insulin LISPRO 300 UNITS/3 ML VIAL SUBQ SCH ×3 (07:52→16:42)
[2020-12-07] MEDS: Clobetasol Propionate 0.05% 15 GM Cream Tube TP SCH (07:53)
[2020-12-07] MEDS ORDERED: cefTRIAXone 2,000 MG in 0.9 % Sodium Chloride Mini Bag 100 ML IVPB SCH (09:00)
[2020-12-07] MEDS: Lactulose Oral Soln 20 GM/30 ML UDC PO PRN (13:51)
[2020-12-07 18:55] VITALS: BP 126/75
== END 2020-12-07 19:59 | DRG 872 ==
LOC: 3ANU 12:35 → EMEROOARM 12:35 → SUATTDRO 15:29 → 3ANU 16:18 → SUATTDRO 11-27 19:05
PROVIDERS: ADMIT Internal Medicine; ATTEND General Practice
PROC: ENDOEBX (2020-12-03 10:15)

== ENCOUNTER 2021-12-06 10:22 | Observation (INO) ==
[2021-12-06] MEDS ORDERED: 0.9 % Sodium Chloride 1,000 ML IVC ONE ×2 (10:35→13:00)
[2021-12-06] MEDS ORDERED: Ondansetron 4 MG/2 ML VIAL IVP ONE (10:35)
[2021-12-06] MEDS ORDERED: Iopamidol - 370 500 ML MLS IVP ONE (10:36)
[2021-12-06 10:59] LABS: Basophils % 0.2 %; Eosinophils % 0.2 %; Hematocrit 37.8 % (37.5-50.1); Hemoglobin 12.8 g/dL (12.9-16.9); Immature Granulocytes % 0.6 % (0-4); Lymphocytes # 0.7 K/mcL (0.6-4.6); Lymphocytes % 5.2 %; Mean Corpuscular HGB Conc 33.9 g/dL (31.6-35.5); Mean Corpuscular Hemoglobin 29.8 pg (28.0-33.3); Mean Corpuscular Volume 88.1 fL (83.0-100.0); Mean Platelet Volume 10.4 fL (9.4-12.4); Monocytes # 1.3 K/mcL (0.0-1.3); Monocytes % 9.3 %; Neutrophils # 11.3 K/mcL (1.6-8.9); Platelet Count 220 K/mcL (140-400); Red Blood Count 4.29 M/mcL (4.19-5.50); Red Cell Distribution Width 14.4 % (11.5-14.5); Segmented Neutrophils % 84.5 %; White Blood Count 13.4 K/mcL (4.3-11.1)
[2021-12-06 12:06] LABS: Alanine Aminotransferase 38 Units/L (7-52); Albumin/Globulin Ratio 1.1 (1.1-2.2); Alkaline Phosphatase 92 Units/L (34-104); Amylase 16 Units/L (29-103); Aspartate Amino Transferase 19 Units/L (13-39); BUN/Creatinine Ratio 20 (6-26); Bilirubin,Direct 0.2 mg/dL (0.0-0.2); Bilirubin,Indirect 0.4 mg/dL (0.0-1.0); Bilirubin,Total 0.6 mg/dL (0.3-1.0); Blood Urea Nitrogen 19 mg/dL (8-23); Calcium 9.7 mg/dL (8.6-10.3); Carbon Dioxide 27 mEq/L (23-29); Chloride 94 mEq/L (98-107); Globulin 3.7 g/dL (2.4-3.5); Glucose 205 mg/dL (70-105); Lipase 25 Units/L (11-82); Osmolality,Calculated 282 (280-300); Potassium 3.9 mEq/L (3.5-5.1); Sodium 132 mEq/L (136-145); Total Protein 7.7 g/dL (6.4-8.9); eGFR For African Americans > 60 (> 60); eGFR For Non-African Americans > 60 (> 60)
[2021-12-06 13:47] LABS: Bacteria,Urine Moderate per hpf (None-Few); Bilirubin,Urine Negative (Negative); Blood,Urine Negative (Negative); Clarity,Urine Clear (Clear); Color,Urine Yellow (Yellow); Glucose,Urine (UA) Normal (Normal); Ketones,Urine Trace mg/dL (Negative); Leukocyte Esterase,Urine Small (Negative); Mucus,Urine Few per lpf (None-Few); Nitrite,Urine Negative (Negative); Protein,Urine 30 mg/dL (Neg-Trace); Specific Gravity,Urine > 1.030 (1.010-1.025); Urobilinogen,Urine Normal (Normal); WBC,Urine 15-30 per hpf (0-3)
[2021-12-06] MEDS ORDERED: Dextrose Gel 15 GM/37.5 ML TUBE PO PRN ×2 (14:01)
[2021-12-06] MEDS ORDERED: Mag Hydrox/Al Hydrox/Simeth 30 ML UDC PO PRN (14:01)
[2021-12-06] MEDS ORDERED: *HR* Dextrose 50 % in Water (Syg) 50 ML SYRINGE IVP PRN (14:01)
[2021-12-06] MEDS ORDERED: Acetaminophen 325 MG TABLET PO PRN (14:01)
[2021-12-06] MEDS ORDERED: D5% in Water 1,000 ML IVC PRN (14:01)
[2021-12-06] MEDS ORDERED: Naloxone 0.4 MG/ML INJ IVP PRN (14:01)
[2021-12-06] MEDS ORDERED: MOM Conc 10 ML UD.LIQ PO PRN (14:01)
[2021-12-06] MEDS: Ondansetron 4 MG/2 ML VIAL IVP PRN (14:48)
[2021-12-06] MEDS ORDERED: Metoclopramide 10 MG/2 ML VIAL IVP STA (15:31)
[2021-12-06] MEDS: Insulin LISPRO 300 UNITS/3 ML VIAL SUBQ SCH ×2 (17:15→20:05)
[2021-12-06] MEDS: 0.9 % Sodium Chloride 1,000 ML IVC SCH (17:15)
[2021-12-06] MEDS ORDERED: Baclofen 10 MG TABLET PO PRN (18:13)
[2021-12-06] MEDS ORDERED: 0.9 % Sodium Chloride 1,000 ML IVC SCH (18:15)
[2021-12-06] MEDS ORDERED: TRIAMCINOLONE ACET 0.1% TP SCH (19:00)
[2021-12-06] MEDS ORDERED: *HR* Promethazine 25 MG/ML VIAL IM ONE (19:32)
[2021-12-06] MEDS: Melatonin 3 MG TABLET PO SCH (20:01)
[2021-12-06] MEDS: OXcarbazepine 150 MG TABLET PO SCH (20:02)
[2021-12-06] MEDS: QUEtiapine Fumarate 300 MG TABLET PO SCH (20:02)
[2021-12-06] MEDS: Latanoprost 2.5 ML BOTTLE BOTH EYES SCH (20:03)
[2021-12-06] MEDS: Lactobacillus 1 EACH CAP.SPRINK PO SCH (20:03)
[2021-12-06] MEDS: Sennosides 8.6 MG TABLET PO SCH (20:03)
[2021-12-06] MEDS: Insulin DETEMIR 100 UNIT/ML X5UNITS SUBQ SCH (21:33)
[2021-12-07 01:22] LABS: Mean Corpuscular Hemoglobin 29.4 pg (28.0-33.3); Mean Corpuscular Volume 88.9 fL (83.0-100.0); Mean Platelet Volume 10.7 fL (9.4-12.4); Platelet Count 200 K/mcL (140-400); Red Blood Count 3.71 M/mcL (4.19-5.50); Red Cell Distribution Width 14.3 % (11.5-14.5); White Blood Count 11.8 K/mcL (4.3-11.1)
[2021-12-07 01:28] LABS: Hemoglobin 10.9 g/dL (12.9-16.9)
[2021-12-07 01:38] LABS: BUN/Creatinine Ratio 18 (6-26); Blood Urea Nitrogen 16 mg/dL (8-23); Calcium 8.7 mg/dL (8.6-10.3); Carbon Dioxide 26 mEq/L (23-29); Chloride 98 mEq/L (98-107); Glucose 176 mg/dL (70-105); Magnesium 1.5 mg/dL (1.6-2.6); Osmolality,Calculated 279 (280-300); Potassium 4.1 mEq/L (3.5-5.1); Sodium 132 mEq/L (136-145); eGFR For African Americans > 60 (> 60); eGFR For Non-African Americans > 60 (> 60)
[2021-12-07] MEDS: 0.9 % Sodium Chloride 1,000 ML IVC SCH (07:53)
[2021-12-07] MEDS: lisinopriL 20 MG TABLET PO SCH (07:54)
[2021-12-07] MEDS: Loratadine 10 MG TABLET PO SCH (07:54)
[2021-12-07] MEDS: Lactobacillus 1 EACH CAP.SPRINK PO SCH ×2 (07:54→20:57)
[2021-12-07] MEDS: OXcarbazepine 150 MG TABLET PO SCH ×2 (07:54→20:57)
[2021-12-07] MEDS: Insulin LISPRO 300 UNITS/3 ML VIAL SUBQ SCH ×4 (07:55→21:01)
[2021-12-07] MEDS: Aspirin Enteric Coated 81 MG Tablet PO SCH (07:55)
[2021-12-07] MEDS: Sennosides 8.6 MG TABLET PO SCH ×2 (07:55→20:57)
[2021-12-07] MEDS: Ondansetron 4 MG/2 ML VIAL IVP PRN (10:53)
[2021-12-07] MEDS ORDERED: *HR* Promethazine 25 MG/ML VIAL IM PRN (12:51)
[2021-12-07] MEDS ORDERED: Ondansetron 4 MG/2 ML VIAL IVP PRN (12:51)
[2021-12-07] MEDS: QUEtiapine Fumarate 300 MG TABLET PO SCH (20:56)
[2021-12-07] MEDS: Melatonin 3 MG TABLET PO SCH (20:57)
[2021-12-07] MEDS: Latanoprost 2.5 ML BOTTLE BOTH EYES SCH (21:13)
[2021-12-07] MEDS: Insulin DETEMIR 100 UNIT/ML X5UNITS SUBQ SCH (21:53)
[2021-12-08] MEDS: *HR* Enoxaparin 40 MG/0.4 ML SYRINGE SQ SCH (05:28)
[2021-12-08] MEDS: Lactobacillus 1 EACH CAP.SPRINK PO SCH ×2 (08:12→21:20)
[2021-12-08] MEDS: Sennosides 8.6 MG TABLET PO SCH ×2 (08:12→21:20)
[2021-12-08] MEDS: OXcarbazepine 150 MG TABLET PO SCH ×2 (08:12→21:19)
[2021-12-08] MEDS: Loratadine 10 MG TABLET PO SCH (08:12)
[2021-12-08] MEDS: lisinopriL 20 MG TABLET PO SCH (08:12)
[2021-12-08] MEDS: Aspirin Enteric Coated 81 MG Tablet PO SCH (08:12)
[2021-12-08] MEDS: Insulin LISPRO 300 UNITS/3 ML VIAL SUBQ SCH ×4 (08:13→21:22)
[2021-12-08 09:19] LABS: Hematocrit 32.9 % (37.5-50.1); Hemoglobin 11.1 g/dL (12.9-16.9)
[2021-12-08] MEDS: Melatonin 3 MG TABLET PO SCH (21:20)
[2021-12-08] MEDS: QUEtiapine Fumarate 300 MG TABLET PO SCH (21:20)
[2021-12-08] MEDS: Latanoprost 2.5 ML BOTTLE BOTH EYES SCH (21:22)
[2021-12-08] MEDS: Insulin DETEMIR 100 UNIT/ML X5UNITS SUBQ SCH (21:22)
[2021-12-09] MEDS: *HR* Enoxaparin 40 MG/0.4 ML SYRINGE SQ SCH (05:43)
[2021-12-09 07:22] LABS: Estimated Average Glucose 154 mg/dl
[2021-12-09] MEDS ORDERED: *HR* Propofol 200 MG/20 ML VIAL IVP ONE ×2 (07:50→07:57)
[2021-12-09] MEDS ORDERED: Lidocaine -MPF 2% 2 ML VIAL ONE (07:51)
[2021-12-09 07:54] VITALS: TEMP 98.1
[2021-12-09] MEDS: Insulin LISPRO 300 UNITS/3 ML VIAL SUBQ SCH ×2 (08:47→12:43)
[2021-12-09] MEDS: Sennosides 8.6 MG TABLET PO SCH (08:48)
[2021-12-09] MEDS: Aspirin Enteric Coated 81 MG Tablet PO SCH (08:48)
[2021-12-09] MEDS: Loratadine 10 MG TABLET PO SCH (08:48)
[2021-12-09] MEDS: lisinopriL 20 MG TABLET PO SCH (08:49)
[2021-12-09] MEDS: Lactobacillus 1 EACH CAP.SPRINK PO SCH (08:50)
[2021-12-09] MEDS: OXcarbazepine 150 MG TABLET PO SCH (08:50)
[2021-12-09] MEDS ORDERED: polyethylene glycoL 3350 17 GM POWD.PACK PO SCH (11:30)
[2021-12-09 14:39] LABS: Influenza A PCR Negative (Negative); Influenza B PCR Negative (Negative); Resp. Syncytial Virus PCR Negative (Negative); SARS-CoV-2 by PCR (In House) Negative (Negative)
[2021-12-09 15:08] VITALS: BP 125/60; PULSE 60; O2SAT 95
== END 2021-12-09 15:35 | disposition other institution (70) ==
LOC: EMEROOARM 10:22 → 3BNU 10:22 → SUATTDRO 16:05 → 3BNU 17:07
PROVIDERS: ADMIT Internal Medicine; ATTEND Registered Nurse
PROC: ENDOEBX (2021-12-09 09:00)